=== PATIENT | female | born 1995 | race Caucasian/White ===

== ENCOUNTER 2025-09-16 13:16 | Outpatient (CLI) | payer OTHER, SELFPAY ==
--- NOTE | ~2025-09-16 | CT_ITS ---
CT abdomen pelvis w con Clinical History: ABDOMEN PAIN . Comparison: None Technique: Axial images lung bases to symphysis pubis 100 mL IV contrast Coronal, sagittal reformats CT images acquired with automatic exposure control for dose reduction DLP: 223 mGy-cm Findings: Lung bases: Clear. Visualized heart and pericardium: Unremarkable. Liver: Enlarged. Steatosis. Gallbladder: Unremarkable. Spleen: Unremarkable. Pancreas: Unremarkable. Adrenal glands: Unremarkable. Kidneys: Right kidney- No hydronephrosis. No renal stones. Left kidney- No hydronephrosis. No renal stones. Distal esophagus/stomach: Unremarkable. Small bowel loops: Normal caliber and wall thickness. Colon: Areas of apparent wall thickening but under distended. Normal RLQ appendix. Nodes: No enlarged nodes. Peritoneum: No ascites. No free air. Urinary bladder: Unremarkable. Uterus: Unremarkable. Adnexa: No masses. Prominent gonadal veins. Bones: No acute bony abnormality. Soft tissues: Unremarkable. Aorta: No aneurysm or dissection. IVC: Unremarkable. Main portal vein/SMV/splenic vein: Patent. IMPRESSION: 1. No acute findings. Reviewed, dictated and finalized at location R. ARCHITECT IMPRESSION: 1. No acute findings.
--- OUTSIDE RECORDS SUMMARY | 2025-09-16 14:21 | XMS_ITS | Clinical Summary ---
Author Organization [facility] Address [facility] [place] [address] Phone [email or web address] Care Team Providers Care Material Yard Clerk Name Role Phone Unavailable Primary Care Provider Unavailabl e Allergies Active Allergy Reactions Criticality Noted Date Comments Amoxicillin-Pot Clavulanate Rash Medium 12/16/19 16 Other reaction(s): Skin Reactions, Urticaria Medications Calcipotriene 0.005 % foam Apply 1 Pump topically once daily as needed. 2 Active calcipotriene (DOVONOX) 0.005 % cream Apply to affected areas twice daily. 30 day supply. 2 Active clobetasol (TEMOVATE) 0.05 % cream Apply 1 drop topically 2 times daily as needed. 2 Active Fluocinolone Acetonide 0.01 % oil Apply to external and ear canal twice daily as needed. 30 day supply. 2 Active ketoconazole (NIZORAL) 2 % shampoo APPLY TO SCALP THREE TIMES WEEKLY LEAVE ON FOR 5 MINS THE RINSE 2 Active tacrolimus (PROTOPIC) 0.1 % ointment Apply to scaly rash on face up to daily 2 Active triamcinolone (KENALOG) 0.1 % cream Apply to suprapubic area (below your bellybutton) twice daily for a week or two, then once a day for a week or two, then transition to every other day. 30 days supply. 2 Active Active Problems Problem Noted Date Diagnosed Date Body mass index (BMI) 20.0-20.9, adult 0 Overview (08/04/2021): Persons encountering health services in other specified circumstances 08/05/2020 Overview (08/04/2021): Encounter for screening, unspecified 07/29/2020 Overview (08/04/2021): Hypotension, unspecified 10/29/2019 Overview (08/04/2021): Irregular menstruation, unspecified 10/29/2019 Overview (08/04/2021): Abnormal results of liver function studies 10/29 Overview (08/04/2021): Immunizations Immunization Administration Dates Next Due Influenza (Flucelvax) MDCK, PF, quad ([id number]-171) 1 ,08/02/2019 Social History Tobacco Use Types Packs/Day Years Used Date Smoking Tobacco: Never Smokeless Tobacco: Never Tobacco Cessation:Counseling Given: Not Answered Comments:Smoking History Packs/day: 0 cigarettes Alcohol Use Standard Drinks/Week Comments Yes 0 (1 standard drink = 0.6 oz pur e alcohol) Intimate Partner Violence Answer Date R ecorded Insults You Not on file 08/04/2021 Threatens You Not on file 08/04/2021 Screams at You Not on file 08/04/2021 Physically Hurt Not on file 08/04/2021 Intimate Partner Violence Score Not on file 08/04/2021 Alcohol Use Answer Date Recorded Alcohol Use Status Yes 09/05/2022 Depression Answer Date Recorded PHQ Total Score 0 09/05/2022 Comments Unknown Sex and Gender Information Value Date Recorded Sex Assigned at Not on file Legal Sex Female 8:35 AM CDT Gender Identity Female 09/05/2022 8:48 AM BUSINESS INSURANCE AGENT Sexual Orientation Not on file Last Filed Vital Signs Vital Sign Reading Time Taken Comments Blood Pressure 108/70 09/05/2022 9:27 AM BUSINESS INSURANCE AGENT Pulse 84 09/05/2022 9:27 AM BUSINESS INSURANCE AGENT Temperature - - Respiratory Rate - - Oxygen Saturation - - Inhaled Oxygen Concentration - - Weight 58.6 kg (129 lb 3.2 oz) 09/05/2022 9:27 A M BUSINESS INSURANCE AGENT Height 165.1 cm (5' 5) 09/05/2022 9:27 AM BUSINESS INSURANCE AGENT Body Mass Index 21.5 09/05/2022 9:27 AM BUSINESS INSURANCE AGENT Plan of Treatment Health Maintenance Due Date Last Done Comments Cervical Cancer Screening Combo 1993 Dental Cleaning/Exam 1993 HPV only / HPV + Pap 1993 Pap only testing 1993 HPV Immunization (1 - 2-dose series) 01/27/2004 Hepatitis B Immunization (1 of 3 - 19+ 3-dose series) 01/27/2012 Tetanus Diphtheria and Pertussis Immunization (1 - Tdap) 01/27/2012 Covid-19 Immunization ( - 2024- season) 2025 Influenza Immunization (#1) 06/16/202510/2019, 08/02/2019, 07/26/2019 HIB Immunization Aged Out No longer e ligible based on patient's age to complete this topic Hepatitis A Immunization Aged Out No longer eligible based on patient's age to complete this topic Pneumococcal Immunization Aged Out No longer eligible based on patient's age to complete this topic Polio Immunization Aged Out No longer eligible based on patient's age to complete this topic Varicella Immunization Aged Out No lo nger eligible based on patient's age to complete this topic Insurance [facility] NO COPAY [place]
--- OUTSIDE RECORDS SUMMARY | 2025-09-16 14:21 | XMS_ITS | Clinical Summary ---
Author Organization [facility] Address [address] [place] [id number] Care Team Providers Care Nuclear Equipment Test Engineer Name Role Phone Rachel Ojeda MD Primary Care Provider Social History Tobacco Use Types Packs/Day Years Used Date Smoking Tobacco: Never Assessed Comments Unknown Sex and Gender Information Value Date Recorded Sex Assigned at Female 03/21/2025 9:20 AM CDT Legal Sex Female 7:57 AM CDT Gender Identity Not on file Sexual Orientation Not on file Last Filed Vital Signs Vital Sign Reading Time Taken Comments Blood Pressure 108/64 12/08/2015 1:31 PM POULTRY FEED SUPERVISOR Pulse 80 12/08/2015 1:31 PM POULTRY FEED SUPERVISOR Temperature - - Respiratory Rate - - Oxygen Saturation - - Inhaled Oxygen Concentration - - Weight 58.6 kg (129 lb 4 oz) 12/08/2015 1:31 PM POULTRY FEED SUPERVISOR Height 165.1 cm (5' 5) 12/08/2015 1:31 PM POULTRY FEED SUPERVISOR Body Mass Index 21.51 12/08/2015 1:31 PM POULTRY FEED SUPERVISOR Plan of Treatment Health Maintenance Due Date Last Done Comments Cervical Cancer Screening Pap Smear (Age 30 to 64) Every 3 Years 1993 Annual Physical 01/27/1996 Hepatitis C 2011 DTaP, Tdap and Td Vaccines (7 - Td or Tdap) 03/15/2017 03/15/2007, 01/21/1998, 01/21/1998, Additional history exists HPV Vaccines (1 - 3-dose SCDM series) 01/27/2020 Cervical Cancer Screening Pap with HPV Testing (Age 30 to 64) Every 5 Years 2023 Cervical Cancer Screening with HPV 2023 COVID-19 Vaccine ( season) 2025 10/12/2021 Influenza Adult (#1) 2025 08/09/2022, 07/16/2020, 08/02/2019, Additional history exists Hepatitis B Vaccines Completed 03/08/1994, 1993, 1993 Meningococcal Vaccine Aged Out 03/15/2007 No asndy herber eligible based on patient's age to complete this topic Hepatitis A Vaccines Completed 09/07/2011, 02/24/20 11 Meningococcal B Vaccine Aged Out No l onger eligible based on patient's age to complete this topic Pneumococcal Vaccine: Pediatrics (0 to 5 Years) and At-Risk Patients (6 to 49 Years) Aged Out No longer eligible based on patient's age to complete this topic RSV Immunizations Under 20 Months Aged Out No longer eligible based on patient's age to complete this topic Insurance [facility] R[employer]K [employer]NAGEMENT [facility] Care Teams Nuclear Equipment Test Engineer Relationship Specialty Start Date End Date Rachel Ojeda MD [address] [place], [place] [id number] PCP - General FAMILY PRACTICE 03/21/25
--- OUTSIDE RECORDS SUMMARY | 2025-09-16 14:21 | XMS_ITS | Clinical Summary ---
Author Organization [facility] Address [address] [place] [address] Care Team Providers Care Bi Consultant Name Role Phone Rachel Ojeda MD Primary Care Provider Source Comments [facility],non-owned Affiliates and Associated Physician Practices is amultiple site organization consisting of ambulatory clinics and hospital sitesin [place], [place], [place] and [place]. This disclosure is being madepursuant to the Care Everywhere program and may not contain all information available regarding this patient. Last updated 18.[facility] Allergies Active Allergy Reactions Criticality Noted Date Comments Amoxicillin-Pot Clavulanate Skin Reactions,Urticaria Mediu m 12/16/2015 Medications * Be aware that medications may not be up to date on this document. Alwaysverify current medications with the patient. fluticasone (CUTIVATE) 0.05 % creamIndication s:Other psoriasis Apply to rashy areas on face and scalp up to twice daily until it clears. 60 g 2 9 Active Additional Information Patient not taking.Reported on 05/19/2025 azelaic acid (Finacea) 15 % gelIndications: Other rosacea Apply to face daily. 30 days supply. 30 g 5 3 Active Additional Information Patient not taking.Reported on 05/19/2025 fluocinolone (Dermotic) 0.01 % otic oil Apply to external and ear canal twice daily as needed. 30 day supply. 20 mL 3 5 Active Roflumilast (Zoryve) 0.3 % CREA Apply to areas on face and genitals two times daily as needed 60 g 5 5 Active calcipotriene (Dovonex) 0.005 % creamIndication s:Other psoriasis Apply to affected areas twice daily. 30 day supply. 60 g 11 5 Active tacrolimus (Protopic) 0.1 % ointmentIndicat ions:Other psoriasis Apply to scaly rash on face up to daily 60 g 5 Active triamcinolone acetonide (Kenalog) 0.1 % creamIndication s:Other psoriasis APPLY TO AFFECTED AREA (BELOW BELLYBUTTON) TWICE DAILY FOR A WEEK OR TWO; THEN APPLY ONCE A DAY FOR A WEEK OR TWO; THEN TRANSITION TO EVERY OTHER DAY. 45 g 5 5 Active Calcipotriene (Sorilux) 0.005 %Indications:Ot her psoriasis 1 Application by Apply externally route 2 times daily Apply to scalp. 120 g 11 5 Active clobetasol (Temovate) 0.05 % solutionIndicat ions:Other psoriasis Apply to affected areas on scalp twice daily. 30 day 50 mL 11 5 Active clobetasol (Temovate) 0.05 % cream Apply 1 drop to affected area 2 times daily as needed 60 g 5 5 Active ketoconazole (Nizoral) 2 % shampooIndicati ons:Other psoriasis APPLY TO SCALP 3 TIMES WEEKLY - LEAVE ON FOR 5 MINUTES THEN RINSE 120 mL 5 5 Active Active Problems Problem Noted Date Diagnosed Date Other psoriasis 03/17/2021 Encounters Date Type Department Care Team Description 08/06/2025 Refill [facility] - General Dermatology [address], [facility] [address] [place] [address] Oh Hanson MD Refill Request from Last 3 Months Immunizations Immunization Administration Dates Next Due INFLUENZA VACCINE 08/09/2022,07/26/2019 INFLUENZA VACCINE, CELL CULT URE, QUADR. (FLUCELVAX QUADRIVALENT; 6MO+) (CCIIV4) 07/16/2020,08/02/2019 Family History Medical History Relation Name Comments None Known Brother Cancer - Skin, Non Melanoma Father None Known Maternal Aunt Cancer Maternal Grandfather None Known Maternal Grandmother None Known Maternal Uncle None Known Mother None Known Other None Known Paternal Aunt None Known Paternal Grandfather None Known Paternal Grandmother None Known Paternal Uncle None Known Sister Allergy (Severe) Neg Hx Asthma Neg Hx CVA Neg Hx Cancer - Breast Neg Hx Cancer - Other Neg Hx Cancer - Skin, Melanoma Neg Hx Eczema Neg Hx Hemophilia Neg Hx Psoriasis Neg Hx Rashes/Skin Problems Neg Hx Relation Name Status Comments Brother Father Maternal Aunt Maternal Grandfather Maternal Grandmother Maternal Uncle Mother Other Paternal Aunt Paternal Grandfather Paternal Grandmother Paternal Uncle Sister Social History Tobacco Use Types Packs/Day Years Used Date Smoking Tobacco: Never Smokeless Tobacco: Never Tobacco Cessation:Counseling Given: Not Answered Alcohol Use Standard Drinks/Week Comments No 0 (1 standard drink = 0.6 oz pur e alcohol) Comments Unknown Sex and Gender Information Value Date Recorded Sex Assigned at Not on file Legal Sex Female 5:13 PM UTILIZATION MANAGEMENT UM NURSE Gender Identity Not on file Sexual Orientation Not on file Plan of Treatment Upcoming Encounters Date Type Department Care Team (Late st Contact Info) Description 12/01/2025 11:20 AM UTILIZATION MANAGEMENT UM NURSE Office Visit [facility] - General Dermatology [address] [place] [address] Deandra Steiner MD [address] [facility] [address] [place] [address] Health Maintenance Due Date Last Done Comments HIV SCREENING 01/27/2008 HEPATITIS C SCREENING 01/22/2011 DTAP/TDAP/TD VACCINES (1 - Tdap) 01/27/2012 HEPATITIS B VACCINE (1 of 3 - 19+ 3-dose series) 01/27/2012 Cervical Cancer Screening 2014 PAP SMEAR 2014 HPV VACCINE (1 - 3-dose SCDM series) 01/27/2020 PAP with HPV 2023 DEPRESSION SCREENING 10/16/2024 COVID-19 VACCINE ( - 2024- season) 2025 INFLUENZA VACCINE (#1) 2025 2, 07/16/2020, 08/02/2019, Additional history exists ZOSTER VACCINE (1 of 2) 2043 HIB VACCINE Aged Out No longer eligi ble based on patient's age to complete this topic MENINGOCOCCAL (Group B) VACCINE SHARED DECISION-MAKING Aged Out No longer eligible based on patient's age to complete this topic MENINGOCOCCAL GROUPS A/C/Y/W VACCINE Aged Out No longer eligible based on patient's age to complete this topic PNEUMOCOCCAL VACCINE Aged Out No long er eligible based on patient's age to complete this topic Insurance [facility] Member Subscriber Plan / Payer (Ef fective 2017-Present) Name:Woody Browne Relation to Subscriber:Self Name:WOODY BROWNE Payer ID:[id number] (NAIC) Type:PPO Address: [address] [facility] Member Subscriber Plan / Payer (Ef fective 2017-Present) Name:Woody Browne Nitin Relation to Subscriber:Self Name:WOODY BROWNE Payer ID:[id number] (NAIC) Type:PPO Address: [address] CARE Member Subscriber Plan / Payer (Ef fective 2017-Present) Name:Velasquez Brownepedro Taveras Relation to Subscriber:Self Name:WOODY BROWNE Payer ID:[id number] (NAIC) Type:PPO Address: [address] CARE Care Teams Bi Consultant Relationship Specialty Start Date End Date Rachel Ojeda MD [address] [place] [id number] PCP - General 11/10/15
== END 2025-09-16 13:17 | disposition home or self-care (01) ==
PROVIDERS: PCP Family Medicine; Visit Provider Nurse Practitioner Family
DX: R10.85 Abdominal pain of multiple sites (principal)
CPT/HCPCS: 74177; Q9967